=== PATIENT | male | born 1990 | race American Indian/Alaskan Native ===

== ENCOUNTER 2016-12-25 05:41 | Emergency (ER) | payer MEDICAID, OTHER ==
[2016-12-25] MEDS ORDERED: ZOFRAN ODT PO ONE (06:12)
[2016-12-25 06:50] LABS: Basophils % (Auto) 0.2 % (0.0-1.8); Hematocrit 49.4 % (35.5-45.6); Hemoglobin 15.8 gm/dl (11.8-15.2); Mean Corpuscular HGB Conc 32 % (32-34); Mean Corpuscular Volume 79 fl (84-94); Platelet Count 277 K/mm3 (140-440); Red Blood Count 6.27 M/mm3 (3.65-5.03); Red Cell Distribution Width 13.3 % (13.2-15.2); White Blood Count 6.9 K/mm3 (4.5-11.0)
[2016-12-25 06:51] LABS: Mean Corpuscular Hemoglobin 25 pg (28-32)
[2016-12-25 07:44] LABS: Anion Gap 23 mmol/L; BUN/Creatinine Ratio 12; Blood Urea Nitrogen 11 mg/dL (9-20); Calcium 9.8 mg/dL (8.4-10.2); Carbon Dioxide 22 mmol/L (22-30); Chloride 100.9 mmol/L (98-107); Glucose 122 mg/dL (75-100); Potassium 3.7 mmol/L (3.6-5.0); Sodium 142 mmol/L (137-145)
[2016-12-25] MEDS ORDERED: NACL 0.9% 1000 ML 1,000 ML IV ONE (12:31)
[2016-12-25] MEDS ORDERED: ZOFRAN IV ONE (12:37)
[2016-12-25] MEDS ORDERED: PEPCID IV ONE (12:37)
[2016-12-25] MEDS ORDERED: SUBLIMAZE IV ONE (12:37)
--- NOTE | 2016-12-25 12:45 | Emergency Department Report ---
HPI - General Chief Complaint: Nausea/Vomiting/Diarrhea Time Seen by Provider: 12/25/16 12:31 - HPI HPI: Room 4 The patient is a 26-year-old male presenting with chief complaint of abdominal pain nausea or vomiting. The patient states last night he was eating cheese steak and immediately while eating he developed intractable nausea vomiting and diarrhea. Patient complains of epigastric abdominal pain worsened with vomiting. Patient denies any history of fever. Patient gives his pain score 7/ 10 Location: The gastrointestinal system Duration: Constant since 17:00 yesterday Quality: Intractable nausea and vomiting Severity: Moderate Modifying factors: [see above] Context: [see above] Mode of transportation: [not driving] ED Past Medical Hx - Past Medical History Previous Medical History?: No - Surgical History Past Surgical History?: No - Family History Family history: no significant - Social History Smoking Status: Never Smoker Substance Use Type: None, Alcohol (occasional) - Medications Home Medications: Home Medications Medication Instructions Recorded Confirmed Last Taken Type Diphenoxylate HCl/Atropine 2 each PO QID PRN #20 tablet 12/25/16 Unknown Rx [Lomotil 2.5-0.025 mg Tablet] Famotidine [Pepcid] 20 mg PO BID #20 tablet 12/25/16 Unknown Rx Promethazine [Phenergan TAB] 25 mg PO Q6HR PRN #20 tab 12/25/16 Unknown Rx Promethazine [Phenergan] 25 mg MD Q6HR PRN #5 supp.rect 12/25/16 Unknown Rx traMADol [Ultram] 50 mg PO Q6HR PRN #14 tablet 12/25/16 Unknown Rx ED Review of Systems ROS: Stated complaint: N/V/D Other details as noted in HPI Comment: All other systems reviewed and negative Constitutional: denies: chills, fever Eyes: denies: eye pain, eye discharge, vision change ENT: denies: ear pain, throat pain Respiratory: denies: cough, shortness of breath, wheezing Cardiovascular: denies: chest pain, palpitations Endocrine: no symptoms reported Gastrointestinal: abdominal pain, nausea, vomiting, diarrhea Genitourinary: denies: urgency, dysuria Musculoskeletal: denies: back pain, joint swelling, arthralgia Skin: denies: rash, lesions Neurological: denies: headache, weakness, paresthesias Psychiatric: denies: anxiety, depression Hematological/Lymphatic: denies: easy bleeding, easy bruising Physical Exam - Physical Exam Vital Signs: Vital Signs 12/25/16 12/25/16 12/25/16 06:08 11:34 11:35 Temperature 98.6 F 98.7 F Pulse Rate 70 88 Respiratory 18 16 16 Rate Blood Pressure 121/73 Blood Pressure 128/68 [Left] O2 Sat by Pulse 100 98 98 Oximetry Physical Exam: GENERAL: The patient is well-developed well-nourished male lying on stretcher not appearing to be in acute distress. [] HEENT: Normocephalic. Atraumatic. Extraocular motions are intact. NECK: Supple. Trachea midline CHEST/LUNGS: Clear to auscultation. There is no respiratory distress noted. HEART/CARDIOVASCULAR: Regular. There is no tachycardia. There is no gallop rub or murmur. ABDOMEN: Abdomen is soft, nontender. Patient has normal bowel sounds. There is no abdominal distention. SKIN: There is no rash. There is no edema. There is no diaphoresis. NEURO: The patient is awake, alert, and oriented. The patient is cooperative. The patient has normal speech MUSCULOSKELETAL: There is no evidence of acute injury. ED Course Vital Signs 12/25/16 12/25/16 12/25/16 06:08 11:34 11:35 Temperature 98.6 F 98.7 F Pulse Rate 70 88 Respiratory 18 16 16 Rate Blood Pressure 121/73 Blood Pressure 128/68 [Left] O2 Sat by Pulse 100 98 98 Oximetry - Reevaluation(s) Reevaluation #1: 12/25/16 14:08 Patient states he feels great ED Medical Decision Making - Lab Data Result diagrams: 12/25/16 06:18 12/25/16 06:18 Laboratory Results - last 24 hr 12/25/16 12/25/16 06:18 06:18 WBC 6.9 RBC 6.27 H Hgb 15.8 H Hct 49.4 H MCV 79 L MCH 25 L MCHC 32 RDW 13.3 Plt Count 277 Lymph % (Auto) 9.8 L [place] % (Auto) 4.6 Eos % (Auto) 0.0 Baso % (Auto) 0.2 Lymph # 0.7 L [place] # 0.3 Eos # 0.0 Baso # 0.0 Seg Neutrophils % 85.4 H Seg Neutrophils # 5.9 Sodium 142 Potassium 3.7 Chloride 100.9 Carbon Dioxide 22 Anion Gap 23 BUN 11 Creatinine 0.9 Estimated GFR > 60 BUN/Creatinine Ratio 12 Glucose 122 H Calcium 9.8 Laboratory Tests 12/25/16 12/25/16 12/25/16 06:18 06:18 14:22 WBC 6.9 RBC 6.27 H Hgb 15.8 H Hct 49.4 H MCV 79 L MCH 25 L MCHC 32 RDW 13.3 Plt Count 277 Lymph % (Auto) 9.8 L [place] % (Auto) 4.6 Eos % (Auto) 0.0 Baso % (Auto) 0.2 Lymph # 0.7 L [place] # 0.3 Eos # 0.0 Baso # 0.0 Seg Neutrophils % 85.4 H Seg Neutrophils # 5.9 Sodium 142 Potassium 3.7 Chloride 100.9 Carbon Dioxide 22 Anion Gap 23 BUN 11 Creatinine 0.9 Estimated GFR > 60 BUN/Creatinine Ratio 12 Glucose 122 H Calcium 9.8 Urine Color Yellow Urine Turbidity Clear Urine pH 6.0 Ur Specific [place] 1.026 Urine Protein <15 mg/dl Urine Glucose (UA) Neg Urine Ketones 20 Urine Blood Neg Urine Nitrite Neg Urine Bilirubin Neg Urine Urobilinogen < 2.0 Ur Leukocyte Esterase Neg Urine WBC (Auto) 1.0 Urine RBC (Auto) 4.0 Urine Mucus Few - Differential Diagnosis foodborne illness, gastroenteritis Critical care attestation.: If time is entered above; I have spent that time in minutes in the direct care of this critically ill patient, excluding procedure time. ED Disposition Clinical Impression: Gastroenteritis, Nausea vomiting and diarrhea Disposition: DC-01 TO HOME OR SELFCARE Is pt being admited?: No Does the pt Need Aspirin: No Condition: Stable Additional Instructions: Return to the emergency department immediately should you develop worsening symptoms, fever, inability to tolerate food or liquid or any other concerns. Prescriptions: Diphenoxylate HCl/Atropine [Lomotil 2.5-0.025 mg Tablet] 2 each PO QID PRN #20 tablet PRN Reason: Diarrhea Famotidine [Pepcid] 20 mg PO BID #20 tablet Promethazine [Phenergan TAB] 25 mg PO Q6HR PRN #20 tab PRN Reason: Nausea Promethazine [Phenergan] 25 mg MD Q6HR PRN #5 supp.rect PRN Reason: Vomiting traMADol [Ultram] 50 mg PO Q6HR PRN #14 tablet PRN Reason: Pain Referrals: PRIMARY CARE, [Primary Care Provider] - 3-5 Days ROBERT KRAUS MD [Staff Physician] - 3-5 Days AGATA FONG MD [Staff Physician] - 3-5 Days (Dr. Fong is a work and family life consultant. Please follow with him for further evaluation) Time of Disposition: 15:04
[2016-12-25 14:56] LABS: Bilirubin,Urine NEG (Negative); Blood,Urine NEG (Negative); Ketones,Urine 20 mg/dL (Negative); Leukocyte Esterase,Urine NEG (Negative); Mucus,Urine FEW /HPF; Nitrite,Urine NEG (Negative); Protein,Urine <15 mg/dL mg/dL (Negative); Urobilinogen,Urine < 2.0 mg/dL (<2.0)
[2016-12-25 15:17] VITALS: BP 132/66
== END 2016-12-25 15:17 | disposition home or self-care (01) ==
LOC: ED 05:41
DX: K52.9 Noninfective gastroenteritis and colitis, unspecified (principal)
CPT/HCPCS: 36415; 80048; 81001; 85025; 96361; 96374; 96375; 99284; J2405; J7030; Q0162